=== PATIENT | male | born 1985 | race Asian ===

== ENCOUNTER 2017-01-09 18:54 | Emergency (ER) | payer BC ==
[~2017-01-09] VITALS: Ht 185.4 cm; Wt 104.3 kg
[2017-01-09 19:00] VITALS: BP 130/78; PULSE 95; RESP 20; TEMP 97.6; O2SAT 98
--- NOTE | 2017-01-09 20:01 | NUR ---
Placed in room 05 . Placed on activities counselor, blood pressure machine and pulse oximeter. To gown for exam. Side rails up. Report given to AYO Conte.
--- NOTE | 2017-01-09 20:08 | NUR ---
Patient to ER C/O lower back pain 8/10 worse with movement. Patient states that he got injured while playing sports. Denies numbness or tingling on legs. Able to walk with steady gait. AAOx4 unlabored breathing, no signs of acute distress.
--- NOTE | 2017-01-09 20:09 | NUR ---
ER MD Del Valle at bedside for evaluation
[2017-01-09 20:36] VITALS: BP 124/72; PULSE 83; RESP 17; TEMP 97.8; O2SAT 98
--- NOTE | 2017-01-09 20:36 | NUR ---
Patient given written and verbal discharge instructions and verbalizes understanding. ER MD Del Valle discussed with patient the results and treatment provided. Patient in stable condition. ID arm band removed. Rx of flexeril & motrin given. Patient educated on pain management and to follow up with PMD. Pain Scale 0/10. Opportunity for questions provided and answered.
== END 2017-01-09 20:36 | disposition home or self-care (01) ==
LOC: SED 18:54
DX: S39.012A Strain of muscle, fascia and tendon of lower back, initial encounter (principal); F17.200 Nicotine dependence, unspecified, uncomplicated; Z98.890 Other specified postprocedural states; W17.89XA Other fall from one level to another, initial encounter; Y93.67 Activity, basketball; Y99.8 Other external cause status; Y92.89 Other specified places as the place of occurrence of the external cause
CPT/HCPCS: 99283